=== PATIENT | male | born 1960 | race Caucasian/White ===

== ENCOUNTER 2020-05-11 01:12 | Inpatient (IN) ==
[2020-05-11 03:05] LABS: Hematocrit 38 % (42-52); Hemoglobin 12.9 g/dL (14.0-18.0); Mean Corpuscular HGB Conc 34 g/dL (31-36); Mean Corpuscular Hemoglobin 34 pg (27-31); Mean Corpuscular Volume 101 fL (80-94); Mean Platelet Volume 9.4 fL (7.4-10.4); Platelet Count 406 10^3/uL (150-450); Red Blood Count 3.77 10^6 /uL (4.18-5.48); Red Cell Distribution Width 16 % (10-15); White Blood Count 6.4 10^3/uL (3.5-10.8)
[2020-05-11 03:20] LABS: ALT 41 U/L (7-52); AST 87 U/L (13-39); Albumin 4.1 g/dL (3.2-5.2); Albumin/Globulin Ratio 1.3 (1-3); Alkaline Phosphatase 63 U/L (34-104); Anion Gap 13 mmol/L (2-11); BUN/Creatinine Ratio 15.5 (8-20); Blood Urea Nitrogen 13 mg/dL (6-24); CO2 Carbon Dioxide 19 mmol/L (22-32); Calcium 8.3 mg/dL (8.6-10.3); Chloride 104 mmol/L (101-111); EGFR African American 112.8 (>60); EGFR Non-African American 93.2 (>60); Globulin 3.1 g/dL (2-4); Glucose 103 mg/dL (70-100); Potassium 3.7 mmol/L (3.5-5.0); Sodium 136 mmol/L (135-145); Total Protein 7.2 g/dL (6.4-8.9)
[2020-05-11 03:21] LABS: Acetaminophen < 15 mcg/mL; Alcohol, S 231 mg/dL (<10); Salicylate < 2.50 mg/dL (<30)
[2020-05-11 03:37] LABS: TSH Ultra Thyroid Stim Horm 1.55 mcIU/mL (0.34-5.60)
[2020-05-11 05:29] LABS: ABS Basophils 0.1 10^3/ul (0-0.2); ABS Eosinophils 0.1 10^3/ul (0-0.6); ABS Lymphocytes 2.4 10^3/ul (1.0-4.8); ABS Monocytes 0.7 10^3/ul (0-0.8); ABS Neutrophils 3.1 10^3/ul (1.5-7.7); Eosinophil % 1.8 %; Lymphocyte % 37.2 %; Nucleated Red Blood Cells % 0.1
[2020-05-11] MEDS ORDERED: Albuterol HFA INHALER 8 gm MDI INH ONE (07:52)
[2020-05-11] MEDS: Multivitamins/Minerals TAB PO SCH (19:29)
[2020-05-12] MEDS: Multivitamins/Minerals TAB PO SCH (08:50)
[2020-05-12] MEDS ORDERED: Nicotine Lozenge mini 4 MG LOZNG.MINI MT PRN (09:13)
[2020-05-12] MEDS: Nicotine PATCH 21 MG/24 HR PATCH TRANSDERM SCH (09:29)
[2020-05-12] MEDS ORDERED: guaiFENesin 100 mg/5 ml LIQ unit dose cup PO PRN (12:34)
[2020-05-12] MEDS: Albuterol HFA INHALER 8 gm MDI INH PRN ×2 (18:10→21:18)
[2020-05-13] MEDS: Albuterol HFA INHALER 8 gm MDI INH PRN ×2 (07:29→12:39)
[2020-05-13] MEDS: Nicotine PATCH 21 MG/24 HR PATCH TRANSDERM SCH (08:16)
[2020-05-13] MEDS: Multivitamins/Minerals TAB PO SCH (08:17)
[2020-05-13 20:01] LABS: Urine Appearance Clear; Urine Bilirubin 1+ (Negative); Urine Blood Negative (Negative); Urine Color Amber; Urine Glucose 1+(50 mg/dL) (Negative); Urine Ketones Trace (Negative); Urine Nitrite Negative (Negative); Urine Protein Negative (Negative); Urine Specific Gravity 1.038 (1.010-1.030); Urine Urobilinogen Negative (Negative)
[2020-05-13 20:36] LABS: Urine Benzodiazepine Screen Presumptive Positive (None Detect); Urine Buprenorphine Screen None Detected (None Detect); Urine Cannabinoids Screen Presumptive Positive (None Detect); Urine Fentanyl Screen None Detected (None Detect); Urine Hydrocodone Screen None Detected (None Detect); Urine Opiates Screen None Detected (None Detect)
[2020-05-14] MEDS: Nicotine PATCH 21 MG/24 HR PATCH TRANSDERM SCH (08:05)
[2020-05-14] MEDS: Multivitamins/Minerals TAB PO SCH (08:06)
[2020-05-14] MEDS: Albuterol HFA INHALER 8 gm MDI INH PRN (08:19)
[2020-05-14] MEDS ORDERED: Influenza VAC *QUAD* 2020-21* 0.5 ML SYRINGE IM ONE (09:00)
[2020-05-15 08:04] VITALS: BP 153/95
[2020-05-15] MEDS: Nicotine PATCH 21 MG/24 HR PATCH TRANSDERM SCH (08:29)
[2020-05-15] MEDS: Multivitamins/Minerals TAB PO SCH (08:29)
[2020-05-15] MEDS ORDERED: Naltrexone INJ 380 MG IM ONE (09:00)
== END 2020-05-15 09:40 | disposition home or self-care (01) | DRG 751 ==
LOC: ED 01:12 → BSU 14:47
PROVIDERS: ADMIT Psychiatry & Neurology Psychiatry; ATTEND Psychiatry & Neurology Psychiatry

== ENCOUNTER 2021-02-20 21:52 | Inpatient (IN) ==
[2021-02-20] MEDS ORDERED: Albuterol HFA INHALER 8 gm MDI INH ONE (22:43)
[2021-02-20] MEDS ORDERED: methylPREDNISolone 125 mg 2 ML VIAL IV ONE (22:51)
[2021-02-21 01:03] LABS: Influenza A Molecular Negative (Negative); Influenza B Molecular Negative (Negative)
[2021-02-21 03:43] LABS: Hematocrit 37 % (42-52); Hemoglobin 12.5 g/dL (14.0-18.0); Mean Corpuscular HGB Conc 34 g/dL (31-36); Mean Corpuscular Hemoglobin 34 pg (27-31); Mean Corpuscular Volume 99 fL (80-94); Mean Platelet Volume 9.3 fL (7.4-10.4); Platelet Count 429 10^3/uL (150-450); Red Blood Count 3.71 10^6 /uL (4.18-5.48); Red Cell Distribution Width 17 % (10-15); White Blood Count 8.8 10^3/uL (3.5-10.8)
[2021-02-21 04:01] LABS: Albumin 3.8 g/dL (3.2-5.2); Albumin/Globulin Ratio 1.2 (1-3); C Reactive Protein 6.12 mg/L (<8.01); Calcium 8.5 mg/dL (8.6-10.3); Globulin 3.2 g/dL (2-4); Potassium 3.7 mmol/L (3.5-5.0); Total Bilirubin 0.4 mg/dL (0.2-1.0)
[2021-02-21 04:02] LABS: Troponin I 0.01 ng/mL (<0.03)
[2021-02-21 06:06] LABS: Acanthocytes 1+; Target Cells 1+
[2021-02-21 06:08] LABS: ABS Basophils 0.1 10^3/ul (0-0.2); ABS Eosinophils 0.3 10^3/ul (0-0.6); ABS Lymphocytes 4.3 10^3/ul (1.0-4.8); ABS Monocytes 1.2 10^3/ul (0-0.8); ABS Neutrophils 2.9 10^3/ul (1.5-7.7); Eosinophil % 3.7 %; Nucleated Red Blood Cells % 0.1
[2021-02-21] MEDS ORDERED: Albuterol/Ipratropium NEB.SOL (2.5/0.5 MG) 3 ML NEB.SOLN INH ONE (06:40)
[2021-02-21] MEDS ORDERED: Lactated Ringers 1000 ml BAG 1,000 ML IV ONE (10:46)
[2021-02-21] MEDS ORDERED: LORazepam 2 mg VIAL 1 ml IV PUSH ONE (10:46)
[2021-02-21] MEDS ORDERED: Lorazepam PYXIS KEY PRN (10:46)
[2021-02-21] MEDS ORDERED: Metoprolol Tartrate 5 mg VIAL 5 ml VIAL (1 mg/ml) IV ONE (11:55)
[2021-02-21] MEDS ORDERED: Furosemide 20 mg/2 ml IV VIAL IV SLOW PU ONE (13:40)
[2021-02-21] MEDS ORDERED: Ondansetron 4 mg VIAL 2 MG/ML 2 ml VIAL IV PRN (13:42)
[2021-02-21] MEDS ORDERED: LORazepam 2 mg VIAL 1 ml IV PUSH SCH (14:00)
[2021-02-21] MEDS ORDERED: Albuterol HFA INHALER 8 gm MDI INH PRN (14:00)
[2021-02-21] MEDS ORDERED: Potassium Chlor 20 meq TAB.ER PO ONE (14:26)
[2021-02-21 14:34] LABS: TSH Ultra Thyroid Stim Horm 2.28 mcIU/mL (0.34-5.60)
[2021-02-21] MEDS: Enoxaparin 40 MG/0.4 ML SYR SUBCUT SCH (14:46)
[2021-02-21 14:54] LABS: Rapid COVID-19 Molecular Undetected (Undetected)
[2021-02-21] MEDS: Nicotine GUM 4MG FRUIT FLAVOR PO PRN (20:20)
[2021-02-22] MEDS: Multivitamins/Minerals TAB PO SCH (08:44)
[2021-02-22] MEDS ORDERED: MULTIVITAMIN IRON FOLIC ACID PO SCH (09:00)
[2021-02-22] MEDS ORDERED: Flu vaccine *QUAD* 2021-22* 0.5 ML SYRINGE IM ONE (09:00)
[2021-02-22 10:29] LABS: Hematocrit 36 % (42-52); Hemoglobin 12.2 g/dL (14.0-18.0); Mean Corpuscular HGB Conc 34 g/dL (31-36); Mean Corpuscular Hemoglobin 34 pg (27-31); Mean Corpuscular Volume 99 fL (80-94); Mean Platelet Volume 9.3 fL (7.4-10.4); Platelet Count 423 10^3/uL (150-450); Red Cell Distribution Width 17 % (10-15)
[2021-02-22 10:47] LABS: Albumin 3.5 g/dL (3.2-5.2); Albumin/Globulin Ratio 1.1 (1-3); Calcium 8.6 mg/dL (8.6-10.3); Direct Bilirubin 0.1 mg/dL (0.03-0.18); Globulin 3.2 g/dL (2-4); Indirect Bilirubin 0.4 mg/dL (0.3-1.0); Potassium 3.8 mmol/L (3.5-5.0); Total Bilirubin 0.5 mg/dL (0.2-1.0); Total Protein 6.7 g/dL (6.4-8.9)
[2021-02-22] MEDS ORDERED: Furosemide 40 mg/4 ml IV VIAL IV ONE (11:19)
[2021-02-22 11:32] LABS: ABS Lymphocytes 1.8 10^3/ul (1.0-4.8); ABS Monocytes 1.5 10^3/ul (0-0.8); ABS Neutrophils 5.7 10^3/ul (1.5-7.7); Lymphocyte % 19.4 %; Nucleated Red Blood Cells % 0.1
[2021-02-22] MEDS: Enoxaparin 40 MG/0.4 ML SYR SUBCUT SCH (13:17)
[2021-02-23] MEDS: Multivitamins/Minerals TAB PO SCH (08:39)
[2021-02-23] MEDS ORDERED: SPIRIVA Respimat (tiotropium) 2.5 mcg/inh Inhaler INH SCH (09:00)
[2021-02-23] MEDS: Albuterol HFA INHALER 8 gm MDI INH PRN ×3 (09:40→23:46)
[2021-02-23] MEDS: SPIRIVA Respimat (tiotropium) 2.5 mcg/inh Inhaler INH SCH (09:40)
[2021-02-23 10:11] LABS: Calcium 8.7 mg/dL (8.6-10.3); Potassium 3.7 mmol/L (3.5-5.0)
[2021-02-23] MEDS ORDERED: Iohexol 350 (CONTRAST) 500 ML MDV IV ONE (11:06)
[2021-02-23 11:09] LABS: Folate > 20.00 ng/mL (5.90-24.80)
[2021-02-23 11:10] LABS: Vitamin B12 454 pg/mL (180-914)
[2021-02-23] MEDS: Enoxaparin 40 MG/0.4 ML SYR SUBCUT SCH (15:35)
[2021-02-23] MEDS: Nicotine GUM 4MG FRUIT FLAVOR PO PRN (21:25)
[2021-02-23] MEDS ORDERED: LORazepam 2 mg VIAL 1 ml IV PUSH SCH (21:59)
[2021-02-23] MEDS ORDERED: Lorazepam PYXIS KEY PRN (22:03)
[2021-02-23] MEDS ORDERED: LORazepam 2 mg VIAL 1 ml IV PUSH ONE (22:04)
[2021-02-24] MEDS: SPIRIVA Respimat (tiotropium) 2.5 mcg/inh Inhaler INH SCH (07:32)
[2021-02-24 08:09] LABS: Hematocrit 36 % (42-52); Hemoglobin 12.3 g/dL (14.0-18.0); Mean Corpuscular HGB Conc 34 g/dL (31-36); Mean Corpuscular Hemoglobin 34 pg (27-31); Mean Corpuscular Volume 99 fL (80-94); Mean Platelet Volume 9.3 fL (7.4-10.4); Platelet Count 393 10^3/uL (150-450); Red Blood Count 3.68 10^6 /uL (4.18-5.48); Red Cell Distribution Width 16 % (10-15); White Blood Count 7.9 10^3/uL (3.5-10.8)
[2021-02-24 08:16] LABS: Calcium 8.1 mg/dL (8.6-10.3); Potassium 3.6 mmol/L (3.5-5.0)
[2021-02-24 08:41] LABS: ABS Basophils 0.1 10^3/ul (0-0.2); ABS Eosinophils 0.3 10^3/ul (0-0.6); ABS Lymphocytes 3.3 10^3/ul (1.0-4.8); ABS Monocytes 1.1 10^3/ul (0-0.8); Eosinophil % 4.1 %; Lymphocyte % 42.1 %; Nucleated Red Blood Cells % 0.1
[2021-02-24] MEDS: Multivitamins/Minerals TAB PO SCH (08:51)
[2021-02-24] MEDS ORDERED: Furosemide 20 mg/2 ml IV VIAL IV SLOW PU ONE (08:56)
[2021-02-24] MEDS: Nicotine GUM 4MG FRUIT FLAVOR PO PRN (20:48)
[2021-02-24] MEDS: Albuterol HFA INHALER 8 gm MDI INH PRN (22:19)
[2021-02-25] MEDS: SPIRIVA Respimat (tiotropium) 2.5 mcg/inh Inhaler INH SCH (07:37)
[2021-02-25 08:05] LABS: Hematocrit 38 % (42-52); Hemoglobin 12.9 g/dL (14.0-18.0); Mean Corpuscular HGB Conc 34 g/dL (31-36); Mean Corpuscular Hemoglobin 34 pg (27-31); Mean Corpuscular Volume 99 fL (80-94); Mean Platelet Volume 9.3 fL (7.4-10.4); Platelet Count 397 10^3/uL (150-450); Red Blood Count 3.82 10^6 /uL (4.18-5.48); Red Cell Distribution Width 16 % (10-15)
[2021-02-25 08:07] LABS: ABS Eosinophils 0.4 10^3/ul (0-0.6); ABS Lymphocytes 2.5 10^3/ul (1.0-4.8); ABS Monocytes 0.8 10^3/ul (0-0.8); ABS Neutrophils 2.2 10^3/ul (1.5-7.7); Eosinophil % 7.4 %; Lymphocyte % 41.2 %; Nucleated Red Blood Cells % 0.1
[2021-02-25 08:22] LABS: Calcium 8.5 mg/dL (8.6-10.3); Magnesium 2.1 mg/dL (1.9-2.7); Potassium 3.9 mmol/L (3.5-5.0)
[2021-02-25] MEDS: Multivitamins/Minerals TAB PO SCH (08:52)
[2021-02-26] MEDS: SPIRIVA Respimat (tiotropium) 2.5 mcg/inh Inhaler INH SCH (07:47)
[2021-02-26] MEDS: Multivitamins/Minerals TAB PO SCH (08:52)
[2021-02-26 10:31] VITALS: BP 149/90
== END 2021-02-26 12:30 | disposition home or self-care (01) | DRG 134 ==
LOC: MED 21:52 → ED 21:52 → SUATTDRO 02-21 16:28 → MEDTELE 02-21 17:44 → SUATTDRO 02-23 15:25
PROVIDERS: ADMIT Hospitalist; ATTEND Student in an Organized Health Care Education/Training Program

== ENCOUNTER 2021-04-23 23:14 | Inpatient (IN) ==
[2021-04-24 04:10] LABS: Hematocrit 39 % (42-52); Mean Corpuscular HGB Conc 33 g/dL (31-36); Mean Corpuscular Hemoglobin 32 pg (27-31); Mean Corpuscular Volume 97 fL (80-94); Mean Platelet Volume 9.5 fL (7.4-10.4); Platelet Count 415 10^3/uL (150-450); Red Blood Count 4.04 10^6 /uL (4.18-5.48); Red Cell Distribution Width 14 % (10-15); White Blood Count 6.6 10^3/uL (3.5-10.8)
[2021-04-24] MEDS ORDERED: Albuterol HFA INHALER 8 gm MDI INH ONE (04:11)
[2021-04-24 04:18] LABS: ABS Basophils 0.1 10^3/ul (0-0.2); ABS Eosinophils 0.2 10^3/ul (0-0.6); ABS Lymphocytes 3.1 10^3/ul (1.0-4.8); ABS Monocytes 0.8 10^3/ul (0-0.8); ABS Neutrophils 2.4 10^3/ul (1.5-7.7); Eosinophil % 2.4 %; Lymphocyte % 47.6 %; Nucleated Red Blood Cells % 0.2
[2021-04-24 04:30] LABS: ALT 51 U/L (7-52); Albumin 4.1 g/dL (3.2-5.2); Alkaline Phosphatase 116 U/L (35-149); Blood Urea Nitrogen 5 mg/dL (6-24); CO2 Carbon Dioxide 20 mmol/L (22-32); Calcium 8.7 mg/dL (8.6-10.3); Chloride 104 mmol/L (101-111); Glucose 82 mg/dL (70-100); Sodium 136 mmol/L (135-145); Total Protein 8.1 g/dL (6.4-8.9); eGFR CKD-EPI 98.5 (>60)
[2021-04-24 04:34] LABS: Troponin I 0.01 ng/mL (<0.03)
[2021-04-24] MEDS ORDERED: Iodixanol (CONTRAST) 320 MG/ML 100 ML SDV IV ONE ×2 (04:41→22:11)
[2021-04-24 05:04] LABS: Anion Gap 12 mmol/L (2-11)
[2021-04-24] MEDS ORDERED: Al Hydrox/Mg Hydrox/Simet LIQ 30 ML UDC PO PRN (19:47)
[2021-04-24] MEDS: Albuterol HFA INHALER 8 gm MDI INH PRN (23:58)
[2021-04-25] MEDS: Vitamin THERAPEUTIC TAB PO SCH (09:23)
[2021-04-26] MEDS: Vitamin THERAPEUTIC TAB PO SCH (09:22)
[2021-04-27 08:13] LABS: Hematocrit 41 % (42-52); Hemoglobin 13.6 g/dL (14.0-18.0); Mean Corpuscular HGB Conc 33 g/dL (31-36); Mean Corpuscular Hemoglobin 32 pg (27-31); Mean Corpuscular Volume 97 fL (80-94); Mean Platelet Volume 9.7 fL (7.4-10.4); Platelet Count 396 10^3/uL (150-450); Red Cell Distribution Width 15 % (10-15)
[2021-04-27 08:14] LABS: ABS Basophils 0.1 10^3/ul (0-0.2); ABS Eosinophils 0.4 10^3/ul (0-0.6); ABS Lymphocytes 2.4 10^3/ul (1.0-4.8); ABS Monocytes 0.9 10^3/ul (0-0.8); ABS Neutrophils 3.2 10^3/ul (1.5-7.7); Eosinophil % 5.2 %; Nucleated Red Blood Cells % 0.1
[2021-04-27 08:29] LABS: Albumin 3.7 g/dL (3.2-5.2); C Reactive Protein 3.93 mg/L (<8.01); Calcium 8.9 mg/dL (8.6-10.3); Globulin 3.6 g/dL (2-4); Potassium 3.6 mmol/L (3.5-5.0); Total Bilirubin 0.5 mg/dL (0.2-1.0); Total Protein 7.3 g/dL (6.4-8.9); eGFR CKD-EPI 98.5 (>60)
[2021-04-27 08:30] LABS: HDL Cholesterol 65.9 mg/dL
[2021-04-27] MEDS: Vitamin THERAPEUTIC TAB PO SCH (08:37)
[2021-04-27 20:28] LABS: Urine Benzodiazepine Screen Presumptive Positive (None Detect); Urine Cannabinoids Screen Presumptive Positive (None Detect); Urine Opiates Screen None Detected (None Detect)
[2021-04-28] MEDS: Vitamin THERAPEUTIC TAB PO SCH (08:54)
[2021-04-29] MEDS: Vitamin THERAPEUTIC TAB PO SCH (09:24)
[2021-04-29] MEDS: Albuterol HFA INHALER 8 gm MDI INH PRN (23:15)
[2021-04-30 09:03] VITALS: BP 134/68
[2021-04-30] MEDS: Vitamin THERAPEUTIC TAB PO SCH (09:09)
== END 2021-04-30 11:05 | disposition home or self-care (01) | DRG 775 ==
LOC: ED 23:14 → BSU 04-24 15:18 → ED 04-24 15:18 → BSU 04-24 16:58
PROVIDERS: ADMIT Psychiatry & Neurology Psychiatry; ATTEND Psychiatry & Neurology Psychiatry

== ENCOUNTER 2021-06-20 02:09 | Inpatient (IN) ==
[2021-06-20] MEDS ORDERED: methylPREDNISolone 125 mg 2 ML VIAL IV ONE (02:14)
[2021-06-20] MEDS ORDERED: Albuterol 0.5% CONC CONTINUOUS NEB.SOL 5 mg/ml 20 ml BOT INH ONE (02:14)
[2021-06-20 02:48] LABS: Hematocrit 37 % (42-52); Hemoglobin 12.6 g/dL (14.0-18.0); Mean Corpuscular HGB Conc 34 g/dL (31-36); Mean Corpuscular Hemoglobin 33 pg (27-31); Mean Corpuscular Volume 95 fL (80-94); Mean Platelet Volume 9.8 fL (7.4-10.4); Platelet Count 353 10^3/uL (150-450); Red Blood Count 3.86 10^6 /uL (4.18-5.48); Red Cell Distribution Width 17 % (10-15); White Blood Count 6.5 10^3/uL (3.5-10.8)
[2021-06-20 02:52] LABS: ABS Basophils 0.2 10^3/ul (0-0.2); ABS Eosinophils 0.1 10^3/ul (0-0.6); ABS Lymphocytes 2.9 10^3/ul (1.0-4.8); ABS Monocytes 0.9 10^3/ul (0-0.8); ABS Neutrophils 2.4 10^3/ul (1.5-7.7); Eosinophil % 1.4 %; Lymphocyte % 44.7 %; Nucleated Red Blood Cells % 0.1
[2021-06-20 03:07] LABS: Albumin/Globulin Ratio 0.9 (1-3); Calcium 9.3 mg/dL (8.6-10.3); Globulin 4.4 g/dL (2-4); Potassium 3.7 mmol/L (3.5-5.0); Total Bilirubin 0.5 mg/dL (0.2-1.0); Total Protein 8.4 g/dL (6.4-8.9); eGFR CKD-EPI 95.9 (>60)
[2021-06-20 03:08] LABS: Troponin I 0.01 ng/mL (<0.03)
[2021-06-20] MEDS ORDERED: Lorazepam PYXIS KEY PRN (05:01)
[2021-06-20] MEDS ORDERED: Thiamine 100 MG/ML 2 ml VIAL (200 mg) IM ONE (05:09)
[2021-06-20] MEDS ORDERED: Lactated Ringers 1000 ml BAG 1,000 ML IV ONE (05:12)
[2021-06-20 05:29] LABS: Magnesium 2.2 mg/dL (1.9-2.7)
[2021-06-20] MEDS: DOXYcycline 100 MG in NS 0.9% 250 ml 250 ML IVPB SCH ×2 (05:40→21:23)
[2021-06-20] MEDS ORDERED: NS 0.9% 250 ml 250 ML ONE (05:57)
[2021-06-20] MEDS: methylPREDNISolone SOD 40 mg/ml 1 ml VIAL IV SCH ×3 (06:08→20:39)
[2021-06-20 07:20] LABS: PCO2 Arterial 30 mmHg (35-45); PO2 Arterial 84 mmHg (80-100)
[2021-06-20 07:44] LABS: Urine Appearance Clear; Urine Bilirubin Negative (Negative); Urine Blood Negative (Negative); Urine Color Straw; Urine Glucose Negative (Negative); Urine Ketones 1+ (Negative); Urine Nitrite Negative (Negative); Urine Protein Negative (Negative); Urine Specific Gravity 1.004 (1.002-1.030); Urine Urobilinogen Negative (Negative)
[2021-06-20 08:00] LABS: Urine Benzodiazepine Screen None Detected (None Detect); Urine Cannabinoids Screen Presumptive Positive (None Detect); Urine Opiates Screen None Detected (None Detect)
[2021-06-20] MEDS ORDERED: Lactated Ringers 500 ml BAG 500 ML IV ONE (08:52)
[2021-06-20] MEDS: Albuterol/Ipratropium NEB.SOL (2.5/0.5 MG) 3 ML NEB.SOLN INH SCH ×5 (09:31→22:59)
[2021-06-20] MEDS ORDERED: Albuterol 2.5mg/3 ml (0.083%) NEB.SOLN INH ONE (09:36)
[2021-06-20] MEDS ORDERED: Albuterol/Ipratropium NEB.SOL (2.5/0.5 MG) 3 ML NEB.SOLN ONE (09:37)
[2021-06-20] MEDS: Multivitamins/Minerals TAB PO SCH (09:59)
[2021-06-20] MEDS: Lactated Ringers 1000 ml BAG 1,000 ML IV ONE ×2 (11:52→17:02)
[2021-06-20] MEDS ORDERED: Lactated Ringers 1000 ml BAG 1,000 ML IV SCH (18:00)
[2021-06-21] MEDS: Albuterol/Ipratropium NEB.SOL (2.5/0.5 MG) 3 ML NEB.SOLN INH SCH ×2 (03:00→08:14)
[2021-06-21 05:54] LABS: Hematocrit 32 % (42-52); Hemoglobin 10.9 g/dL (14.0-18.0); Mean Corpuscular HGB Conc 34 g/dL (31-36); Mean Corpuscular Hemoglobin 33 pg (27-31); Mean Corpuscular Volume 96 fL (80-94); Mean Platelet Volume 10.2 fL (7.4-10.4); Platelet Count 299 10^3/uL (150-450); Red Blood Count 3.33 10^6 /uL (4.18-5.48); Red Cell Distribution Width 17 % (10-15); White Blood Count 9.3 10^3/uL (3.5-10.8)
[2021-06-21 05:55] LABS: ABS Lymphocytes 0.6 10^3/ul (1.0-4.8); ABS Monocytes 1.2 10^3/ul (0-0.8); ABS Neutrophils 7.5 10^3/ul (1.5-7.7); Lymphocyte % 6.6 %
[2021-06-21 06:03] LABS: Potassium 3.9 mmol/L (3.5-5.0)
[2021-06-21] MEDS: methylPREDNISolone SOD 40 mg/ml 1 ml VIAL IV SCH ×2 (06:31→14:05)
[2021-06-21 07:28] LABS: Albumin 3.3 g/dL (3.2-5.2); Calcium 8.5 mg/dL (8.6-10.3); Total Bilirubin 0.6 mg/dL (0.2-1.0)
[2021-06-21 07:34] LABS: Albumin/Globulin Ratio 0.9 (1-3); Globulin 3.5 g/dL (2-4); Total Protein 6.8 g/dL (6.4-8.9); eGFR CKD-EPI 106.2 (>60)
[2021-06-21] MEDS: DOXYcycline 100 MG in NS 0.9% 250 ml 250 ML IVPB SCH ×2 (09:45→19:53)
[2021-06-21] MEDS: Multivitamins/Minerals TAB PO SCH (09:47)
[2021-06-21] MEDS: LORazepam 2 mg VIAL 1 ml IV PUSH PRN ×3 (12:11→17:54)
[2021-06-21] MEDS ORDERED: LORazepam 2 mg VIAL 1 ml IV PUSH ONE (12:55)
[2021-06-21] MEDS ORDERED: LORazepam 2 mg VIAL 1 ml ONE (12:57)
[2021-06-21] MEDS: Nicotine PATCH 21 MG/24 HR PATCH TRANSDERM SCH (17:32)
[2021-06-21] MEDS: Mometasone/Formoter 100/5 MDI INH SCH (20:14)
[2021-06-21] MEDS: Thiamine 100 MG/ML 2 ml VIAL 500 MG in NS 0.9% 250 ml 250 ML IV SCH (21:48)
[2021-06-22 05:47] LABS: Hematocrit 33 % (42-52); Mean Corpuscular HGB Conc 34 g/dL (31-36); Mean Corpuscular Hemoglobin 32 pg (27-31); Mean Corpuscular Volume 96 fL (80-94); Mean Platelet Volume 9.7 fL (7.4-10.4); Platelet Count 294 10^3/uL (150-450); Red Blood Count 3.44 10^6 /uL (4.18-5.48); Red Cell Distribution Width 17 % (10-15)
[2021-06-22 06:11] LABS: Calcium 8.7 mg/dL (8.6-10.3); Potassium 3.9 mmol/L (3.5-5.0); eGFR CKD-EPI 105.3 (>60)
[2021-06-22] MEDS: Multivitamins/Minerals TAB PO SCH (08:31)
[2021-06-22] MEDS: Nicotine PATCH 21 MG/24 HR PATCH TRANSDERM SCH (08:33)
[2021-06-22] MEDS: DOXYcycline 100 MG in NS 0.9% 250 ml 250 ML IVPB SCH ×2 (08:40→20:28)
[2021-06-22] MEDS: Mometasone/Formoter 100/5 MDI INH SCH ×2 (08:57→19:08)
[2021-06-22] MEDS: Thiamine 100 MG/ML 2 ml VIAL 500 MG in NS 0.9% 250 ml 250 ML IV SCH ×3 (10:08→22:58)
[2021-06-22] MEDS: LORazepam 2 mg VIAL 1 ml IV PUSH PRN ×5 (14:29→22:05)
[2021-06-22] MEDS: Nicotine GUM 4MG FRUIT FLAVOR PO PRN ×2 (18:22→21:07)
[2021-06-22] MEDS: LORazepam 2 mg VIAL 1 ml IV PUSH SCH (23:56)
[2021-06-23] MEDS: LORazepam 2 mg VIAL 1 ml IV PUSH SCH ×6 (00:48→07:59)
[2021-06-23] MEDS ORDERED: Haloperidol 5 mg/ml SDV IV/IM 5 MG/ML AMP IM ONE (01:42)
[2021-06-23] MEDS ORDERED: LORazepam 2 mg VIAL 1 ml IV PUSH ONE ×3 (01:50→11:33)
[2021-06-23] MEDS ORDERED: Lorazepam PYXIS KEY PRN ×4 (01:50→12:15)
[2021-06-23] MEDS: Mometasone/Formoter 100/5 MDI INH SCH ×3 (07:14→19:29)
[2021-06-23] MEDS: Multivitamins/Minerals TAB PO SCH (08:00)
[2021-06-23] MEDS ORDERED: Haloperidol 5 mg/ml SDV IV/IM 5 MG/ML AMP ONE (09:45)
[2021-06-23] MEDS: Thiamine 100 MG/ML 2 ml VIAL 500 MG in NS 0.9% 250 ml 250 ML IV SCH ×3 (10:37→21:22)
[2021-06-23] MEDS ORDERED: Ziprasidone IM 20 mg VIAL 1 ml VIAL ONE (10:38)
[2021-06-23] MEDS ORDERED: Ziprasidone IM 20 mg VIAL 1 ml VIAL IM ONE (10:42)
[2021-06-23] MEDS: Dexmedetomidine 1,000 MCG in NS 0.9% 250 ml 240 ML IV SCH (10:48)
[2021-06-23] MEDS ORDERED: Lorazepam PYXIS KEY ONE (11:34)
[2021-06-23] MEDS ORDERED: LORazepam 2 mg VIAL 1 ml ONE (11:34)
[2021-06-23] MEDS: LORazepam 2 mg VIAL 1 ml IV PUSH PRN ×2 (16:42→20:06)
[2021-06-24] MEDS: LORazepam 2 mg VIAL 1 ml IV PUSH PRN ×5 (05:47→18:50)
[2021-06-24 05:48] LABS: ABS Eosinophils 0.2 10^3/ul (0-0.6); ABS Lymphocytes 2.5 10^3/ul (1.0-4.8); ABS Monocytes 0.8 10^3/ul (0-0.8); ABS Neutrophils 6.1 10^3/ul (1.5-7.7); Eosinophil % 1.8 %; Hematocrit 38 % (42-52); Hemoglobin 12.7 g/dL (14.0-18.0); Lymphocyte % 26.2 %; Mean Corpuscular HGB Conc 33 g/dL (31-36); Mean Corpuscular Hemoglobin 32 pg (27-31); Mean Corpuscular Volume 96 fL (80-94); Mean Platelet Volume 10.3 fL (7.4-10.4); Nucleated Red Blood Cells % 0.1; Platelet Count 338 10^3/uL (150-450); Red Blood Count 3.99 10^6 /uL (4.18-5.48); Red Cell Distribution Width 17 % (10-15); White Blood Count 9.6 10^3/uL (3.5-10.8)
[2021-06-24 06:03] LABS: Calcium 8.7 mg/dL (8.6-10.3); Magnesium 2.1 mg/dL (1.9-2.7); Potassium 3.9 mmol/L (3.5-5.0)
[2021-06-24] MEDS: Thiamine 100 MG/ML 2 ml VIAL 500 MG in NS 0.9% 250 ml 250 ML IV SCH ×3 (07:34→21:07)
[2021-06-24] MEDS: Multivitamins/Minerals TAB PO SCH (08:19)
[2021-06-24] MEDS: Nicotine GUM 4MG FRUIT FLAVOR PO PRN (08:21)
[2021-06-25] MEDS: LORazepam 2 mg VIAL 1 ml IV PUSH PRN ×4 (00:03→21:42)
[2021-06-25] MEDS: Dexmedetomidine 1,000 MCG in NS 0.9% 250 ml 240 ML IV SCH ×2 (06:15→18:12)
[2021-06-25] MEDS: Multivitamins/Minerals TAB PO SCH (09:10)
[2021-06-25] MEDS: Thiamine 100 MG/ML 2 ml VIAL 500 MG in NS 0.9% 250 ml 250 ML IV SCH ×3 (09:17→20:34)
[2021-06-25] MEDS ORDERED: hydrALAZINE 20 mg/ml 1 ML Vial IV ONE (15:46)
[2021-06-25] MEDS: hydrALAZINE 20 mg/ml 1 ML Vial IV IV SLOW PU PRN ×2 (15:47→18:23)
[2021-06-25] MEDS ORDERED: hydrALAZINE 20 mg/ml 1 ML Vial IV IV SLOW PU ONE (18:21)
[2021-06-25 20:02] LABS: Urine Appearance Clear; Urine Bilirubin Negative (Negative); Urine Blood 1+ (Negative); Urine Color Yellow; Urine Glucose Negative (Negative); Urine Ketones 2+ (Negative); Urine Nitrite Negative (Negative); Urine Protein Negative (Negative); Urine Specific Gravity 1.021 (1.002-1.030); Urine Urobilinogen Negative (Negative)
[2021-06-25 20:06] LABS: Urine Bacteria Absent (Absent); Urine Red Blood Cell Absent (Absent); Urine White Blood Cell Absent (Absent)
[2021-06-26] MEDS: LORazepam 2 mg VIAL 1 ml IV PUSH PRN ×3 (02:37→08:25)
[2021-06-26] MEDS: Dexmedetomidine 1,000 MCG in NS 0.9% 250 ml 240 ML IV SCH (03:58)
[2021-06-26] MEDS: Multivitamins/Minerals TAB PO SCH (07:40)
[2021-06-26] MEDS ORDERED: Folic Acid IV 1 MG in NS 0.9% 50 ML 50 ML IV ONE (07:51)
[2021-06-26] MEDS: Thiamine 100 MG/ML 2 ml VIAL 500 MG in NS 0.9% 250 ml 250 ML IV SCH ×5 (08:03→21:41)
[2021-06-26] MEDS ORDERED: MULTIPLE VITAMIN IVPB SCH (09:00)
[2021-06-26] MEDS: MULTIPLE VITAMIN IVPB SCH (09:54)
[2021-06-26] MEDS: NS 0.9% IVPB SCH (09:54)
[2021-06-26] MEDS: FOLIC ACID IVPB SCH (09:54)
[2021-06-26] MEDS: Enoxaparin 80 MG/0.8 ML SYR SUBCUT SCH ×2 (12:13→21:41)
[2021-06-26] MEDS ORDERED: Phenol 1.4% Throat Spray 177 ml BTL MT PRN (12:24)
[2021-06-26] MEDS: LORazepam 2 mg VIAL 1 ml IV PUSH SCH (21:05)
[2021-06-27] MEDS: LORazepam 2 mg VIAL 1 ml IV PUSH SCH ×4 (01:37→20:55)
[2021-06-27] MEDS: Albuterol HFA INHALER 8 gm MDI INH PRN (05:35)
[2021-06-27] MEDS: Thiamine 100 MG/ML 2 ml VIAL 500 MG in NS 0.9% 250 ml 250 ML IV SCH (11:12)
[2021-06-27] MEDS: FOLIC ACID IVPB SCH (11:51)
[2021-06-27] MEDS: Enoxaparin 80 MG/0.8 ML SYR SUBCUT SCH ×2 (11:51→21:02)
[2021-06-27] MEDS: MULTIPLE VITAMIN IVPB SCH (11:51)
[2021-06-27] MEDS: NS 0.9% IVPB SCH (11:51)
[2021-06-28] MEDS: LORazepam 2 mg VIAL 1 ml IV PUSH SCH ×2 (01:08→04:56)
[2021-06-28] MEDS: Albuterol HFA INHALER 8 gm MDI INH PRN (04:12)
[2021-06-28] MEDS ORDERED: Haloperidol 5 mg/ml SDV IV/IM 5 MG/ML AMP IV SLOW PU ONE (06:06)
[2021-06-28 07:02] LABS: Hematocrit 36 % (42-52); Hemoglobin 12.4 g/dL (14.0-18.0); Mean Corpuscular HGB Conc 34 g/dL (31-36); Mean Corpuscular Hemoglobin 33 pg (27-31); Mean Corpuscular Volume 96 fL (80-94); Mean Platelet Volume 10.7 fL (7.4-10.4); Platelet Count 336 10^3/uL (150-450); Red Blood Count 3.75 10^6 /uL (4.18-5.48); Red Cell Distribution Width 18 % (10-15); White Blood Count 7.8 10^3/uL (3.5-10.8)
[2021-06-28 07:18] LABS: INR 1.29 (0.86-1.15)
[2021-06-28 07:19] LABS: ALT 94 U/L (7-52); AST 83 U/L (13-39); Albumin 3.4 g/dL (3.2-5.2); Alkaline Phosphatase 129 U/L (35-149); Anion Gap 8 mmol/L (2-11); Blood Urea Nitrogen 18 mg/dL (6-24); CO2 Carbon Dioxide 20 mmol/L (22-32); Calcium 8.8 mg/dL (8.6-10.3); Chloride 109 mmol/L (101-111); Globulin 3.5 g/dL (2-4); Glucose 102 mg/dL (70-100); Magnesium 1.9 mg/dL (1.9-2.7); Potassium 3.2 mmol/L (3.5-5.0); Sodium 137 mmol/L (135-145); Total Protein 6.9 g/dL (6.4-8.9); eGFR CKD-EPI 102.7 (>60)
[2021-06-28 07:48] LABS: % Iron Saturation 32 % (15-55); Iron 94 ug/dL (50-212); Total Iron Binding Capacity 290 mcg/dL (250-450); Transferrin 207 mg/dL (203-362); Unsaturated Iron Binding 196 ug/dL
[2021-06-28 08:14] LABS: Vitamin B12 > 1450 pg/mL (180-914)
[2021-06-28] MEDS ORDERED: Magnesium Sulfate 2 gm BAG 2 GM/50 ML BAG IVPB ONE (08:46)
[2021-06-28 09:01] LABS: ABS Basophils 0.1 10^3/ul (0-0.2); ABS Eosinophils 0.2 10^3/ul (0-0.6); ABS Monocytes 1.6 10^3/ul (0-0.8); ABS Neutrophils 3.9 10^3/ul (1.5-7.7); Eosinophil % 2.2 %; Lymphocyte % 26.1 %
[2021-06-28] MEDS: Enoxaparin 80 MG/0.8 ML SYR SUBCUT SCH (10:45)
[2021-06-28] MEDS: FOLIC ACID IVPB SCH (10:54)
[2021-06-28] MEDS: MULTIPLE VITAMIN IVPB SCH (10:54)
[2021-06-28] MEDS: NS 0.9% IVPB SCH (10:54)
[2021-06-28] MEDS: KCL 20 MEQ/100 ML IVPREMIX 20 MEQ/100 ML BAG IV SCH ×2 (11:48→13:44)
[2021-06-28] MEDS: Potassium Chlor 20 meq TAB.ER PO SCH ×2 (15:44→17:42)
[2021-06-29 07:01] LABS: Calcium 8.8 mg/dL (8.6-10.3); Magnesium 1.8 mg/dL (1.9-2.7); Potassium 3.7 mmol/L (3.5-5.0); eGFR CKD-EPI 107.2 (>60)
[2021-06-29] MEDS: MULTIPLE VITAMIN IVPB SCH (12:41)
[2021-06-29] MEDS: NS 0.9% IVPB SCH (12:41)
[2021-06-29] MEDS: FOLIC ACID IVPB SCH (12:41)
[2021-06-29] MEDS: LORazepam 2 mg VIAL 1 ml IV PUSH SCH (13:28)
[2021-06-29] MEDS ORDERED: Magnesium Sulfate IV 1GM/100ML 1 GM/100 ML BAG IV ONE (15:20)
[2021-06-30] MEDS: Multivitamins/Minerals TAB PO SCH (09:41)
[2021-06-30] MEDS: Albuterol HFA INHALER 8 gm MDI INH PRN (09:45)
[2021-06-30] MEDS: Nicotine GUM 4MG FRUIT FLAVOR PO PRN (22:16)
[2021-07-01] MEDS: Multivitamins/Minerals TAB PO SCH (08:49)
[2021-07-01] MEDS: Nicotine GUM 4MG FRUIT FLAVOR PO PRN ×2 (18:31→21:32)
[2021-07-02] MEDS: Multivitamins/Minerals TAB PO SCH (10:26)
[2021-07-02] MEDS: Nicotine GUM 4MG FRUIT FLAVOR PO PRN ×2 (10:58→21:02)
[2021-07-03] MEDS: Multivitamins/Minerals TAB PO SCH (09:43)
[2021-07-03] MEDS: Nicotine GUM 4MG FRUIT FLAVOR PO PRN (21:56)
[2021-07-04] MEDS: Multivitamins/Minerals TAB PO SCH (08:52)
[2021-07-05] MEDS: Multivitamins/Minerals TAB PO SCH (08:46)
[2021-07-06] MEDS: Multivitamins/Minerals TAB PO SCH (09:04)
[2021-07-07] MEDS: Multivitamins/Minerals TAB PO SCH (08:37)
[2021-07-08 07:12] VITALS: BP 116/63
[2021-07-08] MEDS: Multivitamins/Minerals TAB PO SCH (09:13)
== END 2021-07-08 12:45 | disposition home or self-care (01) | DRG 140 ==
LOC: PREINTOOBSV → MEDTELE 02:09 → SUATTDRO 04:57 → MEDTELE 08:01 → SUATTDRO 06-22 16:43 → ICU 06-23 09:40 → MED 06-26 17:15
PROVIDERS: ADMIT Internal Medicine; ATTEND Internal Medicine

== ENCOUNTER 2022-02-23 08:11 | Inpatient (IN) ==
[2022-02-23] MEDS ORDERED: Lactated Ringers 1000 ml BAG 1,000 ML IV ONE (08:42)
[2022-02-23 10:13] LABS: ABS Eosinophils 0.2 10^3/ul (0-0.6); ABS Lymphocytes 2.9 10^3/ul (1.0-4.8); ABS Monocytes 1.3 10^3/ul (0-0.8); ABS Neutrophils 7.1 10^3/ul (1.5-7.7); Eosinophil % 1.9 %; Hematocrit 36 % (42-52); Hemoglobin 12.3 g/dL (14.0-18.0); Lymphocyte % 24.8 %; Mean Corpuscular HGB Conc 34 g/dL (31-36); Mean Corpuscular Hemoglobin 32 pg (27-31); Mean Corpuscular Volume 94 fL (80-94); Mean Platelet Volume 10.1 fL (7.4-10.4); Nucleated Red Blood Cells % 0.1; Platelet Count 399 10^3/uL (150-450); Red Blood Count 3.81 10^6 /uL (4.18-5.48); Red Cell Distribution Width 15 % (10-15); White Blood Count 11.5 10^3/uL (3.5-10.8)
[2022-02-23 10:35] LABS: High Sens Troponin Baseline 3 pg/mL (<20)
[2022-02-23 11:03] LABS: ALT 25 U/L (7-52); AST 31 U/L (13-39); Acetaminophen < 15 mcg/mL; Albumin 4.3 g/dL (3.2-5.2); Albumin/Globulin Ratio 1.5 (1-3); Alcohol, S < 13 mg/dL (<13); Alkaline Phosphatase 65 U/L (35-149); Anion Gap 11 mmol/L (2-11); Blood Urea Nitrogen 13 mg/dL (6-24); CO2 Carbon Dioxide 24 mmol/L (22-32); Calcium 9.5 mg/dL (8.6-10.3); Chloride 99 mmol/L (101-111); Globulin 2.8 g/dL (2-4); Glucose 87 mg/dL (70-100); Potassium 4.6 mmol/L (3.5-5.0); Sodium 134 mmol/L (135-145); Total Protein 7.1 g/dL (6.4-8.9); eGFR CKD-EPI 90.5 (>60)
[2022-02-23 11:07] LABS: T4, Total 10.71 mcg/dL (6.09-12.23)
[2022-02-23 11:46] LABS: High Sensitivity Troponin 1 Hr 3 pg/mL (<20)
[2022-02-23 12:23] LABS: Urine Benzodiazepine Screen None Detected (None Detect); Urine Cannabinoids Screen None Detected (None Detect); Urine Opiates Screen None Detected (None Detect)
[2022-02-23 12:27] LABS: Urine Appearance Clear; Urine Bilirubin Negative (Negative); Urine Blood Negative (Negative); Urine Color Yellow; Urine Glucose Negative (Negative); Urine Ketones 1+ (Negative); Urine Nitrite Negative (Negative); Urine Protein Negative (Negative); Urine Specific Gravity 1.011 (1.002-1.030); Urine Urobilinogen Negative (Negative)
[2022-02-24] MEDS ORDERED: Al Hydrox/Mg Hydrox/Simet LIQ 30 ML UDC PO PRN (03:39)
[2022-02-24] MEDS ORDERED: Nicotine GUM 2MG FRUIT FLAVOR PO PRN (04:00)
[2022-02-24] MEDS: Vitamin THERAPEUTIC TAB PO SCH (10:40)
[2022-02-25] MEDS: Vitamin THERAPEUTIC TAB PO SCH (11:20)
[2022-02-26 08:00] VITALS: BP 114/59
[2022-02-26] MEDS: Vitamin THERAPEUTIC TAB PO SCH (10:52)
== END 2022-02-26 13:55 | disposition home or self-care (01) | DRG 755 ==
LOC: ED 08:11 → EDHOLD 02-24 00:28 → BSU 02-24 01:14
PROVIDERS: ADMIT Psychiatry & Neurology Psychiatry; ATTEND Psychiatry & Neurology Psychiatry